=== PATIENT | male | born 1955 | race Two or more races ===

== ENCOUNTER → 2020-03-24 14:03 | Outpatient (BNVA) | payer OTHER, SELFPAY | PROVIDERS: PCP Nurse Practitioner Family; Referring Provider Nurse Practitioner Family; Visit Provider Surgery | DX: Z09 Encounter for follow-up examination after completed treatment for conditions other than malignant neoplasm (principal); D17.22 Benign lipomatous neoplasm of skin and subcutaneous tissue of left arm | CPT/HCPCS: 99024; 99212 ==

== ENCOUNTER 2021-04-05 08:34 | Emergency (ER) | payer OTHER, SELFPAY ==
--- NOTE | ~2021-04-05 | XR_ITS ---
EXAMINATION: XR CHEST CLINICAL INFORMATION: Cough and fever COMPARISON: 09/07/2014 TECHNIQUE: 2 views of the chest were obtained. FINDINGS: The lungs are well expanded. A hazy, streaky opacity in the anterior segment right upper lobe adjacent to the minor fissure could represent pneumonia and/or atelectasis. This abnormality is new compared to 09/07/2014. Also, there appears to be a small hazy opacity of the medial segment of the right middle lobe. No pleural effusion. Cardiomediastinal silhouette has normal size and contour. The visualized osseous structures and upper abdomen are unremarkable. XR/XR chest 2V IMPRESSION: There are abnormal hazy opacities in the anterior right upper lobe and medial segment middle lobe from atelectasis and/or pneumonia. No evidence of pulmonary mass. No pleural effusion.
[2021-04-05 08:46] VITALS: BP 133/63; PULSE 89; RESP 12; TEMP 36.9; O2SAT 95; BMI 25.0
[2021-04-05 09:31] LABS: COVID-19 Test Negative (Negative)
--- NOTE | 2021-04-05 09:31 | ED_ITS ---
HPI - General Adult General Chief complaint: Upper Respiratory Symptoms Stated complaint: COUGH SOB Time Seen by Provider: 04/05/21 09:31 Source: patient Mode of arrival: ambulatory Limitations: no limitations History of Present Illness HPI narrative: 66-year-old male smoker with a past medical history of asthma pre sents for 4 days of a productive cough and fevers at home. Patient states he does not have asthma and does not use an inhaler. No runny nose, sore throat, ear pain, nausea, vomiting, diarrhea. No chest pain, no shortness of breath. No sick contacts. He is vaccinated for COVID. Onset (ago): day(s) (4) Related Data Home Medications Medication Instructions Recorded Confirmed albuterol sulfate 90 mcg/actuation 0 mcg INHALATION 03/24/20 aerosol inhaler ibuprofen 600 mg tablet 600 mg PO Q6H PRN 03/24/20 lisinopril 20 mg tablet 20 mg PO DAILY 03/24/20 tramadol 50 mg tablet 100 mg PO Q6H PRN 03/24/20 Previous Rx's Medication Instructions Recorded albuterol sulfate 90 mcg/actuation 2 puff INHALATION Q4-6H #8.5 g 04/05/21 aerosol inhaler amoxicillin 875 mg-potassium 1 tab PO BID 10 Days #20 tab 04/05/21 clavulanate 125 mg tablet (Augmentin) azithromycin 250 mg tablet See Rx Instructions .ROUTE 04/05/21 .COMPLEX #6 tab prednisone 20 mg tablet 40 mg PO DAILY 3 Days #6 tab 04/05/21 Allergies Allergy/AdvReac Type Severity Reaction Status Date / Time No Known Allergies Allergy Verified 03/24/20 13:15 Review of Systems Constitutional: Constitutional: Denies body ache(s), Denies chills, Denies fatigue, Reports fever(s), Denies headache(s), Denies malaise and Denies weakness Eyes: Eyes: Denies diplopia ENT: Denies vertigo, Denies dizziness, Denies otalgia, Denies headache(s), Denies mouth pain, Denies post nasal drip, Denies sinus pain, Denies sinus pressure, Denies sore throat and Denies throat swelling Cardiovascular: Cardiovascular: Denies chest pain, Denies syncope, Denies leg edema, Denies lightheadedness, Denies Loss of Consciousness, Denies palpitations and Denies dyspnea Respiratory: Respiratory: Reports chest congestion, Reports cough, Denies pain on inspiration, Denies pain with cough and Denies dyspnea Gastrointestinal: Gastrointestinal: Denies abdominal pain, Denies hematochezia, Denies constipation, Denies diarrhea and Denies vomiting Musculoskeletal: Musculoskeletal: Reports no additional musculoskeletal complaints Neurologic: Denies confusion, Denies vertigo, Denies dizziness, Denies syncope, Denies headache(s) and Denies weakness Psychiatric: Psychiatric: Denies anxiety, Denies confusion and Denies depression Endocrine: Endocrine: Denies fatigue and Denies palpitations Allergic/Immunologic: Allergic/Immunologic: Denies throat swelling [facility] Past Medical History Medical History Anxiety Asthma Drug abuse Hep C w/o coma, chronic Hypertension Lipoma of arm Surgical History History of appendectomy History of excision of mass History of hernia surgery History of lung surgery Family History Family History Father History of hypertension Other Family history of breast cancer Social History Social History (Updated 03/24/20 @ 14:22 by TRESA Cueva) Alcohol intake: current Advance Directives: No Advance Directives Information Provided: No Physical Exam Vital Signs: Vital Signs: Last Vital Signs Temp 98.4 F 04/05/21 08:46 Pulse 89 04/05/21 08:46 Resp 12 04/05/21 08:46 BP 133/63 04/05/21 08:46 Pulse Ox 95 04/05/21 08:46 Body Mass Index 25.0 Const: General: alert, awake and ill appearing acutely; No confusion Nutritional Appearance: thin Orientation/consciousness: patient oriented x3 and No confusion Limitations: no limitations HENMT: Head: Yes normal to inspection, Yes normocephalic and Yes atraumatic Ears: hearing grossly normal bilaterally, external ears normal, TM's normal bilaterally and EAC's normal General nose exam: Normal external nose present Face and sinus: Yes normal facial exam and Yes sinuses nontender Mouth: Normal oral and palatal mucosa present Throat: Yes posterior oropharynx normal Eyes: Conjunctivae: conjunctivae normal Pupils: Equal, round and reactive pupils present EOM: EOMs intact bilaterally Neck: Neck: Yes full ROM, Yes no lymphadenopathy and Yes supple Resp: Effort & Inspection: normal respiratory effort and able to speak in complete sentences Auscultation: crackles diffuse, no rales, rhonchi throughout and wheezes expiratory wheezes Cardio: Rate: regular rate Rhythm: regular rhythm Heart sounds: S1 normal heart sound present and S2 normal heart sound present GI: Inspection: Yes normal to inspection Palpation (GI): Soft to palpation, nontender, no guarding and not rigid Percussion: Yes normal to percussion Auscultation: normal bowel sounds Skin: General skin exam: no rashes or lesions noted Neuro: General: patient oriented x3 and No confusion Cranial nerves: Yes Equal, round and reactive pupils present Extrem: General: Yes normal to inspection and Yes full ROM Psych: Appearance: grossly normal Affect: normal affect Attitude: cooperative Thought process: Normal thought process present Course Course Course Narrative: 66-year-old male with 4 days of productive cough and fevers at home. On exam, patient is not tachypneic, is satting 95% on room air. No work of breathing. Patient is diffusely wheezy and rhonchorous with crackles throughout his lung h[place]. CXR: There are abnormal hazy opacities in the anterior right upper lobe and medial segment middle lobe from atelectasis and/or pneumonia. No evidence of pulmonary mass. No pleural effusion. Reevaluation(s) Reevaluation #1: Leukocytosis at 11.9. Labs otherwise unremarkable. Patient is COVID negative. On re-exm, pt is still wheezy, rhonchorous, with diffuse rales. Patient has no work of breathing, has stable vitals, and is satting 95%. Will send patient home with Augmentin and azithromycin, short course of prednisone, patient must be seen again in 2 days. Told patient to use albuterol inhaler, 2 puffs every 4 hours. Medical Decision Making Lab Data Result diagrams: 04/05/21 10:13 04/05/21 10:13 Labs: Lab Results 04/05/21 04/05/21 04/05/21 Range/Units 08:55 10:13 10:13 WBC 11.9 H (4.8-10.8) X10*3/uL RBC 3.98 L (4.60-5.80) X10*6/uL Hgb 13.0 L (14.0-18.0) g/dl Hct 38.2 L (42-52) % MCV 96.0 (80-98) fL MCH 32.7 (27.0-33.0) pg MCHC 34.0 (31.0-36.0) g/dl RDW 12.2 (11.0-16.0) % Plt Count 260 (160-400) X10*3/uL MPV 10.8 (9.4-12.4) fL Immature Gran % (Auto) 0.3 (0.0-0.4) % Neut % (Auto) 63.4 (45-73) % Lymph % (Auto) 23.0 (20-40) % [place] % (Auto) 10.1 (2-11) % Eos % (Auto) 2.8 (0-4) % Baso % (Auto) 0.4 (0-2) % Lymph # (Auto) 2.7 (1.2-4.9) X10*3/uL [place] # (Auto) 1.2 (0.1-1.2) X10*3/uL Eos # (Auto) 0.3 (0.0-0.4) X10*3/uL Baso # (Auto) 0.1 (0.0-0.2) X10*3/uL Abs Immat Gran (auto) 0.04 H (0.00-0.03) X10*3/uL Absolute Neuts (auto) 7.5 (2.0-8.3) X10*3/uL Absolute Nucleated RBC 0.000 (0.0-0.012) X10*3/uL Nucleated RBC % (auto) 0.0 (0.0-0.2) /100WBC Sodium 139 (135-145) mmol/L Potassium 4.5 (3.3-5.1) mmol/L Chloride 103 (96-108) mmol/L Carbon Dioxide 28 (22-29) mmol/L Anion Gap 13 (12-20) BUN 15 (9-16) mg/dL Creatinine 0.95 (0.5-1.4) mg/dL Estim Creat Clear Calc 69.5 Estimated GFR > 60 Random Glucose 107 (60-115) mg/dL Calcium 9.3 (8.4-10.2) mg/dL Total Bilirubin 0.4 (0.0-1.0) mg/dL AST 15 (5-37) U/L ALT 8 (0-40) U/L Alkaline Phosphatase 69 (39-117) U/L Total Protein 6.8 (6.5-8.0) g/dL Albumin 3.7 (3.5-5.0) g/dL COVID-19 (KATELIN) Negative (Negative) COVID-19 Clin Com See Note Discharge Plan Discharge Clinical Impression: Pneumonia Qualifiers: Pneumonia type: due to unspecified organism Laterality: right Lung location: unspecified part of lung Qualified Code(s): J18.9 - Pneumonia, unspecified organism Patient Disposition: Home, Self-Care Instructions: Bacterial Pneumonia (ED) Additional Instructions: I have prescribed an albuterol inhaler, prednisone, and 2 antibiotics to treat your pneumonia. Please take all as prescribed. Please use your albuterol inhaler, 2 puffs every 4 hours for the next 3 or 4 days. Please go home and rest and drink plenty of fluids. You must be seen again in 2 days. Please go to your primary care provider so they can listen to your lungs and make sure that you are improving. If you cannot get an appointment with your primary care provider, you may return to the emergency room. It is important that someone listen steer lungs and re-evaluate see you in the next 2-3 days. Prescriptions: New prednisone 20 mg tablet 40 mg PO DAILY 3 Days Qty: 6 RF: 0 albuterol sulfate 90 mcg/actuation HFA aerosol inhaler 2 puff inhalation Q4-6H Qty: 8.5 RF: 0 amoxicillin-pot clavulanate [Augmentin] 875-125 mg tablet 1 tab PO BID 10 Days Qty: 20 RF: 0 azithromycin 250 mg tablet See Rx Instructions .ROUTE .COMPLEX Qty: 6 RF: 0
[2021-04-05 10:17] LABS: MANUAL DIFF FLAG NO
[2021-04-05 10:20] LABS: Basophils Absolute Auto 0.1 X10*3/uL (0.0-0.2); Basophils Percent Auto 0.4 % (0-2); Eosinophils Absolute Auto 0.3 X10*3/uL (0.0-0.4); Eosinophils Percent Auto 2.8 % (0-4); Hematocrit 38.2 % (42-52); Imm Gran Abs Auto 0.04 X10*3/uL (0.00-0.03); Imm Gran Pct Auto 0.3 % (0.0-0.4); Lymphocytes Absolute Auto 2.7 X10*3/uL (1.2-4.9); Mean Corpuscular Hemoglobin 32.7 pg (27.0-33.0); Mean Platelet Volume 10.8 fL (9.4-12.4); Monocytes Absolute Auto 1.2 X10*3/uL (0.1-1.2); Monocytes Percent Auto 10.1 % (2-11); Neutrophils Absolute Auto 7.5 X10*3/uL (2.0-8.3); Neutrophils Percent Auto 63.4 % (45-73); Platelet Count 260 X10*3/uL (160-400); Red Blood Count 3.98 X10*6/uL (4.60-5.80); Red Cell Distribution Width 12.2 % (11.0-16.0); White Blood Count 11.9 X10*3/uL (4.8-10.8)
[2021-04-05] MEDS: Albuterol Sulfate 90 MCG 8 GM INHALER 2 PUFF INHALE (10:24)
[2021-04-05 11:02] LABS: Alanine Aminotransferase 8 U/L (0-40); Albumin Level 3.7 g/dL (3.5-5.0); Alkaline Phosphatase 69 U/L (39-117); Anion Gap 13 (12-20); Aspartate Amino Transferase 15 U/L (5-37); Bilirubin Total 0.4 mg/dL (0.0-1.0); Blood Urea Nitrogen 15 mg/dL (9-16); Calcium 9.3 mg/dL (8.4-10.2); Carbon Dioxide 28 mmol/L (22-29); Chloride 103 mmol/L (96-108); Creatinine Clr Calc Pharmacy 69.5; Estimated Glomerular Filt Rate > 60; Glucose Random 107 mg/dL (60-115); Potassium 4.5 mmol/L (3.3-5.1); Sodium 139 mmol/L (135-145); Total Protein 6.8 g/dL (6.5-8.0)
[2021-04-05] MEDS: predniSONE 20 MG TABLET 60 MG PO (11:51)
== END 2021-04-05 11:55 | disposition home or self-care (01) ==
PROVIDERS: Physician Assistant; Emergency Provider Emergency Medicine Emergency Medical Services; PCP Nurse Practitioner Family
DX: J18.9 Pneumonia, unspecified organism (principal); J45.909 Unspecified asthma, uncomplicated; I10 Essential (primary) hypertension; Z20.822 Contact with and (suspected) exposure to COVID-19
CPT/HCPCS: 36415; 71046; 80053; 85025; 87635; 99282; 99283; 99284

== ENCOUNTER 2022-03-10 15:27 | Emergency (ER) | payer OTHER, SELFPAY ==
--- NOTE | ~2022-03-10 | CT_ITS ---
EXAMINATION: CT ABDOMEN AND PELVIS WITH CONTRAST CLINICAL INFORMATION: Elevated lipase. ETOH. Nausea/vomiting COMPARISON: 06/14/2011 MRI TECHNIQUE: Multidetector volumetric imaging was performed from the superior aspect of the liver through the pubic symphysis following administration of 100 mL Omnipaque 300 intravenous contrast. Sagittal and coronal reformatted images were obtained on the technologist workstation.. This CT examination was performed using dose optimization techniques as appropriate, variously including the following: *Automated exposure control *Adjustment of mA and/or kV according to patient size (this includes techniques or standardized protocols for targeted exams where dose is matched to indication/reason for exam; i.e. extremities or head) *Use of iterative reconstruction technique DLP: 586 mGy-cm FINDINGS: LUNG BASES: The visualized lung bases are unremarkable. LIVER, GALLBLADDER, AND BILIARY TREE: The liver is normal in size, shape, and attenuation. No focal hepatic lesion or biliary ductal dilatation is present. The gallbladder is unremarkable with no evidence of radiopaque gallstones, gallbladder wall thickening, or obvious pericholecystic inflammatory changes. PANCREAS: Homogeneous attenuation. I do not appreciate any pancreatic ductal dilatation. No significant peripancreatic inflammatory changes or fluid. SPLEEN: Unremarkable. ADRENAL GLANDS: Unremarkable. KIDNEYS AND URETERS: Tiny cortical cysts in the right kidney. Otherwise the kidneys are normal in size, shape, and attenuation. No hydronephrosis, hydroureter, or calculi seen. No perinephric stranding. BLADDER: Unremarkable. GASTROINTESTINAL TRACT: A few scattered colonic diverticula but no evidence for diverticulitis. ABDOMINAL WALL: No significant hernia is appreciated. LYMPHOVASCULAR STRUCTURES: Mild vascular calcification within the aorta iliac system. No bulky retroperitoneal or mesenteric adenopathy PELVIC VISCERA: Prostate is prominent with prostatic calcifications. OSSEOUS STRUCTURES: Multilevel degenerative changes in the spine. CT/CT abdomen pelvis w IV con IMPRESSION: Chronic appearing changes as described. I do not appreciate any acute complications of pancreatitis. No obvious pancreatic ductal dilatation or peripancreatic inflammatory changes/fluid at this time.
[2022-03-10 15:31] VITALS: BP 206/106; PULSE 84; PULSE 89; RESP 20; TEMP 36.7; O2SAT 100; BMI 23.3
--- NOTE | 2022-03-10 15:32 | ED_ITS ---
HPI - Alcohol General Chief Complaint: Overdose Stated Complaint: ETOH VOMITING Time Seen by Provider: 03/10/22 15:31 Source: patient and EMS Mode of arrival: EMS History of Present Illness HPI narrative: 67-year-old male with a past medical history of anxiety, asthma, substance abuse, hepatitis-C, HTN, presenting to the ED via EMS s/p knocking on [facility]'s door saying he was overdosing. Patient admits to using heroin and drinking 2 beers. No Narcan given per EMS. Patient reports nausea, vomiting, chills at present. Denies fall/injury, head trauma, headache, CP/SOB, abdominal pain, other illicit substances MD complaint: alcohol intoxication and alcohol dependence Last drink: Just prior to admission Related Data Home Medications Medication Instructions Recorded Confirmed albuterol sulfate 90 mcg/actuation 0 mcg inhalation 03/24/20 aerosol inhaler ibuprofen 600 mg tablet 600 mg PO Q6H PRN pain 03/24/20 lisinopril 20 mg tablet 20 mg PO DAILY 03/24/20 tramadol 50 mg tablet 100 mg PO Q6H PRN pain 03/24/20 Previous Rx's Medication Instructions Recorded albuterol sulfate 90 mcg/actuation 2 puff inhalation Q4-6H #8.5 grams 04/05/21 aerosol inhaler amoxicillin 875 mg-potassium 1 tab PO BID 10 days #20 tabs 04/05/21 clavulanate 125 mg tablet (Augmentin) azithromycin 250 mg tablet See Rx Instructions PO .COMPLEX #6 04/05/21 tabs prednisone 20 mg tablet 40 mg PO DAILY 3 days #6 tabs 04/05/21 Allergies Allergy/AdvReac Type Severity Reaction Status Date / Time No Known Allergies Allergy Verified 03/10/22 15:30 Review of Systems Review of Systems: Constitutional: No Fever, No Chills, No Fatigue, No Malaise ENT/Mouth: No Ear Pain, No Nasal Congestion,No sore throat, No Rhinorrhea, No Swallowing Difficulty Eyes: No Eye Pain, No Swelling, No Redness, No Vision Changes Cardiovascular: No Chest Pain, No SOB, No Edema, No Palpitations Respiratory: No Cough, No Sputum, No Dyspnea Gastrointestinal: + Nausea, + Vomiting, No Abdominal pain Genitourinary: No Dysuria, No Urinary Frequency, No Hematuria,No Flank Pain Musculoskeletal: No joint pain, No Myalgias, No Joint Swelling Skin: No Skin Lesions, No rash Neuro: No Weakness, No Headache Psych: No Anxiety/Panic, No Depression, No SI/HI/AH/VH Yes all other systems are reviewed and are negative Constitutional: Constitutional: Reports as per [facility] Past Medical History Attestation statement: The following information was validated with the patient. Medical History Anxiety Asthma Drug abuse Hep C w/o coma, chronic Hypertension Lipoma of arm Surgical History History of appendectomy History of excision of mass History of hernia surgery History of lung surgery Family History Family History Father History of hypertension Other Family history of breast cancer Social History Social History Alcohol intake: unknown Patient Tobacco Use Status: Refuse Tobacco use screen Use of substances other than those prescribed or required for medical reasons: Yes Substance Use Type: Heroin Advance Directives: No Advance Directives Information Provided: Yes Physical Exam ED Vital Signs: Vital Signs - 24 hr 03/10/22 15:31 03/10/22 18:00 Temperature 98.0 F 98.2 F Pulse Rate 84 77 Respiratory Rate 20 18 Blood Pressure 206/106 H 162/80 H Pulse Oximetry 100 95 Oxygen Delivery Method Room Air Room Air BMI result Body Mass Index 23.3 Const Other: Dishevelled, actively vomiting during evaluation General: no acute distress and intoxicated appearing Orientation/consciousness: patient oriented x3 Limitations: no limitations HENMT Head: Yes normal to inspection, Yes atraumatic, No Calderon's sign and No raccoon eyes Ears: hearing grossly normal bilaterally General nose exam: Normal external nose present Face and sinus: Yes normal facial exam Eyes General: appearance normal, both eyes and all related structures Pupils: Equal, round and reactive pupils present EOM: EOMs intact bilaterally Neck Neck: Yes normal visual inspection and Yes no meningeal signs Resp Effort & Inspection: normal respiratory effort and no respiratory distress Auscultation: clear to auscultation bilaterally Cardio Rate: regular rate Heart sounds: S1 normal heart sound present and S2 normal heart sound present GI Inspection: Yes normal to inspection Palpation (GI): Soft to palpation, nontender, no guarding and not rigid Skin Rashes: no rashes Wounds: no wounds Neuro General: patient oriented x3, tone normal, moves all extremities, no meningeal s igns, no focal motor deficits and CN's II-XI intact bilaterally Cranial nerves: Yes Equal, round and reactive pupils present Extrem General: Yes normal to inspection Course Course Course Narrative: -1639--mild leukocytosis of 11.4. H&H stable. Lipase elevated to 842 > give additional IVF and obtain CT for further evaluation -ethanol 60 -1707--patient vomiting continuing to vomit. Concern for SBO. Patient states he has not had a BM in quite some time. No evidence of ETOH withdrawal this time, no appreciable tremors. 1922--CT abdomen pelvis w IV con IMPRESSION: Chronic appearing changes as described. I do not appreciate any acute complications of pancreatitis. No obvious pancreatic ductal dilatation or peripancreatic inflammatory changes/fluid at this time. > plan to admit for further management. Will initiate on phenobarb protocol -1999---patient now refusing admission. Will sign out AMA. Hospitalist attempted to convince patient to stay as well. Patient does have capacity, is A&O x3, understands the risk of leaving including . Always welcome to return MDM - Alcohol MDM Narrative Medical decision making narrative: 67-year-old male with a past medical history of anxiety, asthma, substance abuse, hepatitis-C, HTN, presenting to the ED via EMS s/p knocking on [facility] door saying he was overdosing. On exam hypertensive, actively vomiting, abdomen soft/nontender, atraumatic, COPPOLA. Concern for ETOH intoxication vs substance abuse vs withdrawal. Rule out metabolic abnormalities Plan: EKG, labs, UA, drug screen, ethanol, IVF, antiemetics Differential Diagnosis Differential diagnosis: Likely alcohol dependence, hypomagnesemia and alcohol intoxication Medical Records Attestation: I reviewed the patient's medical records. Lab Data Attestation: I reviewed the patient's lab results. Result diagrams: 03/10/22 16:05 03/10/22 16:05 Labs: Lab Results 03/10/22 03/10/22 03/10/22 Range/Units 16:05 16:05 17:35 WBC 11.4 H (4.8-10.8) X10*3/uL RBC 4.19 L (4.60-5.80) X10*6/uL Hgb 13.5 L (14.0-18.0) g/dl Hct 40.3 L (42.0-52.0) % MCV 96.2 (80.0-98.0) fL MCH 32.2 (27.0-33.0) pg MCHC 33.5 (31.0-36.0) g/dl RDW 13.4 (11.0-16.0) % Plt Count 225 (160-400) X10*3/uL MPV 11.2 (9.4-12.4) fL Immature Gran % (Auto) 0.3 (0.0-0.4) % Neut % (Auto) 52.4 (45-73) % Lymph % (Auto) 36.5 (20-40) % [place] % (Auto) 7.7 (2-11) % Eos % (Auto) 2.4 (0-4) % Baso % (Auto) 0.7 (0-2) % Lymph # (Auto) 4.2 (1.2-4.9) X10*3/uL [place] # (Auto) 0.9 (0.1-1.2) X10*3/uL Eos # (Auto) 0.3 (0.0-0.4) X10*3/uL Baso # (Auto) 0.1 (0.0-0.2) X10*3/uL Abs Immat Gran (auto) 0.03 (0.00-0.03) X10*3/uL Absolute Neuts (auto) 6.0 (2.0-8.3) x10*3/uL Absolute Nucleated RBC 0.000 (0.0-0.012) X10*3/uL Nucleated RBC % (auto) 0.0 (0.0-0.2) /100WBC Sodium 138 (135-145) mmol/L Potassium 3.6 (3.3-5.1) mmol/L Chloride 102 (96-108) mmol/L Carbon Dioxide 24 (22-29) mmol/L Anion Gap 16 (12-20) BUN 13 (9-16) mg/dL Creatinine 1.09 (0.5-1.4) mg/dL Estim Creat Clear Calc 59.7 Estimated GFR > 60 Random Glucose 83 (60-115) mg/dL Calcium 9.3 (8.4-10.2) mg/dL Magnesium 1.8 (1.6-2.6) mg/dL Total Bilirubin 0.2 (0.0-1.0) mg/dL Direct Bilirubin < 0.2 (0.0-0.5) mg/dL AST 19 (5-37) U/L ALT 13 (0-40) U/L Alkaline Phosphatase 65 (39-117) U/L Total Protein 6.9 (6.5-8.0) g/dL Albumin 4.1 (3.5-5.0) g/dL Lipase 842 H (8-78) U/L Ethyl Alcohol 60 mg/dL COVID-19 (KATELIN) Negative (Negative) COVID-19 Clin Com See Note Discharge Plan Discharge Clinical Impression: Acute pancreatitis, Alcohol intoxication, Substance abuse Patient Disposition: Left Against Medical Advice Instructions: Pancreatitis (ED) Additional Instructions: Avoid alcohol and drug use, this can kill you. You do have acute pancreatitis which is an infection of her pancreas likely from drinking Make sure you are staying hydrated at home. Were signing out against medical advice, meaning be recommended he stay in the hospital for fluids and observation. You are always welcome to return, if pain persists/worsens, you are unable to eat or drink, persistent nausea or vomiting please return to the emergency department immediately Prescriptions: No [facility] prednisone 20 mg tablet 40 mg PO DAILY 3 Days Qty: 6 0RF Rx Instructions: Start April 06, 2021 albuterol sulfate 90 mcg/actuation HFA aerosol inhaler 2 puff inhalation Q4-6H Qty: 8.5 0RF amoxicillin-pot clavulanate [Augmentin] 875-125 mg tablet 1 tab PO BID 10 Days Qty: 20 0RF azithromycin 250 mg tablet See Rx Instructions .ROUTE .COMPLEX Qty: 6 0RF Rx Instructions: take 500 mg today (day 1), then 250 mg for 4 days (days 2-5) Referrals: Physician,Unknown J [Primary Care Provider] - 2 days Stand Alone Forms: Against Medical Advice
[2022-03-10 16:08] LABS: MANUAL DIFF FLAG NO
[2022-03-10 16:09] LABS: Basophils Absolute Auto 0.1 X10*3/uL (0.0-0.2); Basophils Percent Auto 0.7 % (0-2); Eosinophils Absolute Auto 0.3 X10*3/uL (0.0-0.4); Eosinophils Percent Auto 2.4 % (0-4); Hematocrit 40.3 % (42.0-52.0); Hemoglobin 13.5 g/dl (14.0-18.0); Imm Gran Abs Auto 0.03 X10*3/uL (0.00-0.03); Imm Gran Pct Auto 0.3 % (0.0-0.4); Lymphocytes Absolute Auto 4.2 X10*3/uL (1.2-4.9); Lymphocytes Percent Auto 36.5 % (20-40); Mean Corpuscular HGB Conc 33.5 g/dl (31.0-36.0); Mean Corpuscular Hemoglobin 32.2 pg (27.0-33.0); Mean Corpuscular Volume 96.2 fL (80.0-98.0); Mean Platelet Volume 11.2 fL (9.4-12.4); Monocytes Absolute Auto 0.9 X10*3/uL (0.1-1.2); Monocytes Percent Auto 7.7 % (2-11); Neutrophils Percent Auto 52.4 % (45-73); Platelet Count 225 X10*3/uL (160-400); Red Blood Count 4.19 X10*6/uL (4.60-5.80); Red Cell Distribution Width 13.4 % (11.0-16.0); White Blood Count 11.4 X10*3/uL (4.8-10.8)
[2022-03-10 16:30] LABS: Alanine Aminotransferase 13 U/L (0-40); Albumin Level 4.1 g/dL (3.5-5.0); Alkaline Phosphatase 65 U/L (39-117); Anion Gap 16 (12-20); Aspartate Amino Transferase 19 U/L (5-37); Bilirubin Direct < 0.2 mg/dL (0.0-0.5); Bilirubin Total 0.2 mg/dL (0.0-1.0); Blood Urea Nitrogen 13 mg/dL (9-16); Calcium 9.3 mg/dL (8.4-10.2); Carbon Dioxide 24 mmol/L (22-29); Chloride 102 mmol/L (96-108); Creatinine Clr Calc Pharmacy 59.7; Estimated Glomerular Filt Rate > 60; Ethanol 60 mg/dL; Glucose Random 83 mg/dL (60-115); Lipase 842 U/L (8-78); Magnesium 1.8 mg/dL (1.6-2.6); Potassium 3.6 mmol/L (3.3-5.1); Sodium 138 mmol/L (135-145); Total Protein 6.9 g/dL (6.5-8.0)
[2022-03-10] MEDS: ondansetron HCL 4 MG/2 ML VIAL IVPUSH (16:32)
[2022-03-10] MEDS: Famotidine/PF 20 MG/2 ML VIAL IVPUSH (16:32)
[2022-03-10] MEDS: 0.9 % Sodium Chloride 1,000 ML 999 ML IV ×2 (16:33→18:09)
--- NOTE | 2022-03-10 16:35 | PC.NURSE ---
patient a&ox2, iv inserted, labs drawn, pt medicated per order, pt admitted to snorting unknown amount of heroin, pt has vomited in presence of this nurse, will continue to monitor
[2022-03-10 17:58] LABS: COVID-19 Test Negative (Negative); IDNOW Serial# 55D5AD1C
[2022-03-10 18:00] VITALS: BP 162/80; PULSE 77; RESP 18; TEMP 36.8; O2SAT 95
[2022-03-10] MEDS: Folic Acid 1 MG in 0.9 % Sodium Chloride 50 ML 100.4 MG IV (18:13)
[2022-03-10] MEDS: Multivitamin TABLET 1 TAB PO (18:13)
--- NOTE | 2022-03-10 18:16 | PC.NURSE ---
patient a&o, vss, pt medicated per order, pt moved to rm 22. call daniels within reach, pt aware we need urine, will continue to monitor
[2022-03-10] MEDS: iohexoL 350 MG/ML 100 ML INFUS..BTL IV (18:29)
[2022-03-10] MEDS: Thiamine HCL 100 MG in 0.9 % Sodium Chloride 100 ML 202 MG IV (18:58)
--- NOTE | 2022-03-10 18:59 | PC.NURSE ---
pt medicated per order
--- NOTE | 2022-03-10 20:16 | PC.NURSE ---
pt refusing admission and wishing to leave [facility]a, provider is aware, iv removed, pt to discharge
== END 2022-03-10 20:17 | disposition left against medical advice (07) ==
PROVIDERS: Physician Assistant; Emergency Provider Internal Medicine
DX: K85.90 Acute pancreatitis without necrosis or infection, unspecified (principal); F10.220 Alcohol dependence with intoxication, uncomplicated; Y90.3 Blood alcohol level of 60-79 mg/100 ml; F19.10 Other psychoactive substance abuse, uncomplicated; B19.20 Unspecified viral hepatitis C without hepatic coma; I10 Essential (primary) hypertension; Z20.822 Contact with and (suspected) exposure to COVID-19
CPT/HCPCS: 36415; 74177; 80048; 80076; 82077; 83690; 83735; 85025; 87635; 96361; 96365; 96375; 99284; 99285; J2405; J3411; Q9967

== ENCOUNTER → 2022-05-09 11:12 | Outpatient (BNVA) | payer OTHER, SELFPAY | PROVIDERS: Visit Provider Surgery | DX: L98.9 Disorder of the skin and subcutaneous tissue, unspecified (principal); M25.512 Pain in left shoulder | CPT/HCPCS: 99212 ==

== ENCOUNTER → 2022-11-28 10:33 | Outpatient (BNVA) | payer OTHER, SELFPAY | PROVIDERS: Visit Provider Surgery | DX: M89.8X9 Other specified disorders of bone, unspecified site (principal); G47.00 Insomnia, unspecified | CPT/HCPCS: 99212 ==

== ENCOUNTER 2023-04-16 08:51 | Outpatient (REF) | payer OTHER, SELFPAY ==
[2023-04-16 11:10] LABS: MANUAL DIFF FLAG NO
[2023-04-16 11:23] LABS: Basophils Absolute Auto 0.1 X10*3/uL (0.0-0.2); Basophils Percent Auto 0.7 % (0-2); Eosinophils Absolute Auto 0.3 X10*3/uL (0.0-0.4); Eosinophils Percent Auto 2.6 % (0-4); Hematocrit 45.8 % (42.0-52.0); Hemoglobin 15.5 g/dl (14.0-18.0); Imm Gran Abs Auto 0.02 X10*3/uL (0.00-0.03); Imm Gran Pct Auto 0.2 % (0.0-0.4); Lymphocytes Absolute Auto 2.9 X10*3/uL (1.2-4.9); Lymphocytes Percent Auto 28.2 % (20-40); Mean Corpuscular HGB Conc 33.8 g/dl (31.0-36.0); Mean Corpuscular Hemoglobin 34.1 pg (27.0-33.0); Mean Corpuscular Volume 100.7 fL (80.0-98.0); Mean Platelet Volume 11.5 fL (9.4-12.4); Monocytes Absolute Auto 0.9 X10*3/uL (0.1-1.2); Monocytes Percent Auto 9.1 % (2-11); Neutrophils Percent Auto 59.2 % (45-73); Platelet Count 294 X10*3/uL (160-400); Red Blood Count 4.55 X10*6/uL (4.60-5.80); Red Cell Distribution Width 14.2 % (11.0-16.0); White Blood Count 10.2 X10*3/uL (4.8-10.8)
[2023-04-16 11:50] LABS: Alanine Aminotransferase 25 U/L (0-40); Albumin Level 4.2 g/dL (3.5-5.0); Alkaline Phosphatase 70 U/L (39-117); Anion Gap 13 (12-20); Aspartate Amino Transferase 30 U/L (5-37); Bilirubin Total 0.6 mg/dL (0.0-1.0); Blood Urea Nitrogen 14 mg/dL (9-16); Calcium 9.9 mg/dL (8.4-10.2); Carbon Dioxide 25 mmol/L (22-29); Chloride 107 mmol/L (96-108); Cholesterol 185 mg/dL (<200); Estimated Glomerular Filt Rate > 60; Glucose Random 106 mg/dL (60-115); HDL Cholesterol 94 mg/dL (>40); LDL Cholesterol Calculated 83 mg/dL (<100); Sodium 141 mmol/L (135-145); Total Protein 7.5 g/dL (6.5-8.0); Triglycerides 43 mg/dL (<150)
== END 2023-04-16 08:52 | disposition home or self-care (01) ==
LOC: HO.HHCL 08:51
PROVIDERS: Visit Provider Nurse Practitioner Family
DX: Z00.00 Encounter for general adult medical examination without abnormal findings (principal); I10 Essential (primary) hypertension
CPT/HCPCS: 36415; 80053; 80061; 84443; 85025

== ENCOUNTER 2024-02-08 18:07 | Emergency (ER) | payer OTHER, SELFPAY ==
--- NOTE | ~2024-02-08 | CT_ITS ---
EXAMINATION: CT HEAD WITHOUT CONTRAST CT CERVICAL SPINE WITHOUT CONTRAST CLINICAL INFORMATION: Fall. Pain. COMPARISON: CT head from 01/19/2011. TECHNIQUE: Contiguous axial imaging was performed from the skull base to vertex without intravenous administration of contrast. Contiguous axial imaging was performed from the upper chest through the skull base without intravenous administration of contrast. Coronal and sagittal reformats were obtained at the acquisition workstation. This CT examination was performed using dose optimization techniques as appropriate, variously including the following: *Automated exposure control. *Adjustment of mA and/or kV according to patient size (this includes techniques or standardized protocols for targeted exams where dose is matched to indication/reason for exam; i.e. extremities or head). *Use of iterative reconstruction technique. DLP: 998 mGy-cm FINDINGS: Head: There is no evidence of acute intracranial hemorrhage or edematous territorial infarction. Chris-white matter differentiation is preserved. A few foci of hypoattenuation in the periventricular and deep white matter are consistent with mild microangiopathy. Proportional prominence of the ventricles and sulcal spaces without evidence of obstructive hydrocephalus. No abnormal mass effect or midline shift. No extra-axial fluid collections. Calcific atherosclerotic disease of the intracranial internal carotid arteries. No hyperdense vessels on end. No acute soft tissue or osseous abnormalities. Complete opacification of the left maxillary sinus with mild hyperostotic wick. Mild to moderate mucosal thickening in the remaining paranasal sinuses. The mastoid air cells and middle ear cavity are clear. Cervical Spine: The atlantooccipital and atlantoaxial articulations remain well aligned. Moderate degenerative arthropathy of the atlantodental articulation. Mild reversal of the normal cervical lordosis. Mild degenerative retrolisthesis of C6 on C7. Otherwise, there is anatomic alignment of the vertebral bodies and posterior elements. No evidence of acute fracture or subluxation. The vertebral body heights are maintained. Advanced degenerative disc disease from C5-C7. Moderate degenerative disc disease at all additional levels. Facet and uncovertebral joint arthropathy leads to osseous encroachment on the neural foramina from C2-T1. There is no prevertebral soft tissue swelling. The thyroid gland and remaining cervical soft tissues are within normal limits. The lung apices demonstrate no abnormalities. CT/CT cervical spine wo IV con IMPRESSION: 1. No evidence of acute intracranial hemorrhage or edematous territorial infarction. Mild underlying microangiopathy and generalized cerebral volume loss. 2. No evidence of acute fracture or traumatic subluxation of the cervical spine. Moderate multilevel degenerative spondyloarthropathy of the cervical spine. 3. Prominent left maxillary sinus disease. Electronically signed by: Shawn Vazquez DO 02/08/2024 08:11 PM EDT
--- NOTE | ~2024-02-08 | XR_ITS ---
EXAMINATION: XR HIP, LEFT CLINICAL INFORMATION: Fall, COMPARISON: None available. TECHNIQUE: Two views of the left hip. FINDINGS: No fracture. Alignment is anatomic. Hip joint space is maintained. Soft tissues are unremarkable. XR/XR hip LT w PEL1V IMPRESSION: Normal left hip. Electronically signed by: Stevan Thomas DO 02/08/2024 09:21 PM EDT
[2024-02-08 18:11] VITALS: BP 127/74; PULSE 92; RESP 18; TEMP 36.7; O2SAT 97; BMI 25.1
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
[2024-02-08] MEDS: Acetaminophen 325 MG TABLET 975 MG PO (18:44)
[2024-02-08] MEDS: Ibuprofen 600 MG TABLET PO (20:25)
--- NOTE | 2024-02-08 20:26 | PC.NURSE ---
pt medicated for 910 lle pain
[2024-02-08 21:41] VITALS: BP 127/74; PULSE 92; RESP 18; TEMP 36.7; O2SAT 97
== END 2024-02-08 21:43 | disposition home or self-care (01) ==
PROVIDERS: Emergency Provider Emergency Medicine Emergency Medical Services
DX: S70.02XA Contusion of left hip, initial encounter (principal); V18.0XXA Pedal cycle driver injured in noncollision transport accident in nontraffic accident, initial encounter; Y93.55 Activity, bike riding; Y92.410 Unspecified street and highway as the place of occurrence of the external cause; Y99.9 Unspecified external cause status
CPT/HCPCS: 70450; 72125; 73502; 99283; 99284

== ENCOUNTER 2024-04-16 10:47 | Outpatient (AMB) | payer OTHER, SELFPAY ==
--- NOTE | 2024-04-16 10:52 | MHC.OFFVIS ---
Vital Signs 04/16/24 10:59 Height 5 ft 7 in Weight 156 lb BMI 24.4 BP 146/88 H Blood Pressure Location Rt brachial Position Sitting Pulse 108 H Intake Visit Reasons: Cyst on back of head Intake Note: This patient presents for Cyst on posterior scalp. Present for 1yr. Pt c/o; gets irritated with haircuts. 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 He says that he has noticed this for more than a year now. This has been increasing in size. He says been bothering him and he wants this removed. [facility] Medical History (Updated 04/16/24 @ 11:18 by Sal Bethea MD) Epidermal cyst of neck Insomnia Bony prominence Left shoulder pain Skin lesion of cheek Drug abuse Lipoma of arm Hep C w/o coma, chronic Anxiety Hypertension Asthma Surgical History History of appendectomy History of hernia surgery History of lung surgery History of excision of mass Family History Father History of hypertension Other Family history of breast cancer Social History Alcohol intake: unknown Patient Tobacco Use Status: Refuse Tobacco use screen Substance Use Type: Heroin Review of Systems Const Denies chills and Denies fever(s) Card Denies chest pain, Denies dyspnea and Denies dyspnea on exertion Resp Denies cough, Denies dyspnea and Denies dyspnea on exertion GI Denies hematochezia and Denies change in bowel habits Denies hematuria and Denies difficulty urinating Musc Denies back pain and Denies limited range of motion Neuro Denies focal weakness and Denies convulsions Psych Denies depression and Denies mood swings Physical Exam Vital Signs: Last Vital Signs Pulse 108 H 04/16/24 10:59 BP 146/88 H 04/16/24 10:59 BMI result Body Mass Index 24.4 Const General: comfortable and no acute distress Orientation/consciousness: patient oriented x3 Neck Other: Posterior neck with note of a cystic induration, about 2 cm in size consistent with an epidermal cyst Neck: Yes no lymphadenopathy Resp Auscultation: clear to auscultation bilaterally Cardio Rhythm: regular rhythm GI Palpation (GI): Soft to palpation, nontender and no guarding Neuro General: patient oriented x3 Assessment & Plan Assessment & Plan (1) Epidermal cyst of neck: Code(s): L72.0 - Epidermal cyst Category: Medical Plan: He has what appears to be an epidermal cyst of the posterior neck as described above. I explained to him the technique of excision under local anesthesia. I reviewed the risks including but not limited to bleeding, infections, poor healing, as well as the benefits and alternatives. He understands and wants to proceed He will be scheduled for excision of this epidermal cyst under local anesthesia in the office. Coding Level of Care Code New Pt Level 3 (42163) Diagnoses Epidermal cyst of neck L72.0
[2024-04-16 10:59] VITALS: BP 146/88; PULSE 108; BMI 24.4
== END 2024-04-16 11:19 | disposition home or self-care (01) ==
PROVIDERS: Visit Provider Surgery
DX: L72.0 Epidermal cyst (principal)
CPT/HCPCS: 99213

== ENCOUNTER → 2024-04-16 10:47 | Outpatient (BNVA) | payer OTHER, SELFPAY | PROVIDERS: Visit Provider Surgery | DX: L72.0 Epidermal cyst (principal) | CPT/HCPCS: 99212 ==

== ENCOUNTER 2024-04-30 08:50 | Outpatient (REF) | payer OTHER, SELFPAY | END 2024-04-30 08:51 | disposition home or self-care (01) | LOC: HO.LNP 08:50 | PROVIDERS: Visit Provider Surgery | DX: L72.0 Epidermal cyst (principal) | CPT/HCPCS: 11423; 88304 ==

== ENCOUNTER 2024-04-30 08:50 | Outpatient (AMB) | payer OTHER, SELFPAY ==
--- NOTE | 2024-04-30 09:10 | A.OFFVIS_ITS ---
Intake Visit Reasons: excision Cyst on back of head Intake Note: Office procedure: excision cyst posterior head. 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 [facility] Medical History Epidermal cyst of neck Insomnia Bony prominence Left shoulder pain Skin lesion of cheek Drug abuse Lipoma of arm Hep C w/o coma, chronic Anxiety Hypertension Asthma Surgical History History of appendectomy History of hernia surgery History of lung surgery History of excision of mass Family History Father History of hypertension Other Family history of breast cancer Social History Alcohol intake: unknown Patient Tobacco Use Status: Refuse Tobacco use screen Substance Use Type: Heroin Office Procedures Excision Details: He was in prone position. The area of the cyst was prepped and draped. This was on the scalp area in the occipital region near the neck. I infiltrated the area with lidocaine 1%. I made an elliptical incision on the skin surrounding this cystic induration. This is carried down through the full-thickness of the skin and deep subcutaneous fat to excise this entire cyst. This was sent as nicol renae. The cyst removed was about 2.1 cm in diameter I closed the incision with full-thickness nylon 3-0 simple interrupted sutures. Dressings were applied. The procedure was completed. He tolerated procedure well. There were no immediate complications. [id number] scalp/neck/hands/feet/genitalia 2.1cm-3cm Procedure code (CPT) selection complete Assessment & Plan Assessment & Plan (1) Epidermal cyst of neck: Code(s): L72.0 - Epidermal cyst Category: Medical Plan: Excision was done in the office under local anesthesia. He was given wound care instructions. I will see him in the office in about 2 weeks for removal sutures. Coding Level of Care Code Procedure Only Diagnoses Epidermal cyst of neck L72.0 CPT Codes Scalp/Neck/Hands/Feet/Genetalia - CPT: 13142-Bsgadphp scalp/neck/hands/feet/genitalia 2.1cm-3cm ([id number])
== END 2024-04-30 09:38 | disposition home or self-care (01) ==
PROVIDERS: Visit Provider Surgery
DX: L72.0 Epidermal cyst (principal)
CPT/HCPCS: 11423

== ENCOUNTER 2024-05-11 09:02 | Outpatient (AMB) | payer OTHER, SELFPAY ==
--- NOTE | 2024-05-11 09:06 | MHC.OFFVIS ---
Vital Signs 05/11/24 09:15 Height 5 ft 7 in Weight 156 lb BMI 24.4 Intake Visit Reasons: s/p excision Cyst on back of head Intake Note: This patient presents for post-op assessment status post excision cyst posterior neck. Pt c/o; reports no complaints. 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 He denies any complaints and says he feels well overall. [facility] Medical History Epidermal cyst of neck Insomnia Bony prominence Left shoulder pain Skin lesion of cheek Drug abuse Lipoma of arm Hep C w/o coma, chronic Anxiety Hypertension Asthma Surgical History History of removal of cyst (~04/30/24) History of appendectomy History of hernia surgery History of lung surgery History of excision of mass Family History Father History of hypertension Other Family history of breast cancer Social History Alcohol intake: unknown Patient Tobacco Use Status: Refuse Tobacco use screen Substance Use Type: Heroin Review of Systems Const Denies chills and Denies fever(s) Physical Exam Vital Signs: BMI result Body Mass Index 24.4 Const General: comfortable and no acute distress HEENT Other: Excision site well healed, not infected Assessment & Plan Assessment & Plan (1) Epidermal cyst of neck: Code(s): L72.0 - Epidermal cyst Category: Medical Plan: Status post excision. His incision is well healed. His sutures were removed. His path report showed an epidermal inclusion cyst. He can follow up on a p.r.n. basis Coding Level of Care Code Global (48576) Diagnoses Epidermal cyst of neck L72.0
[2024-05-11 09:15] VITALS: BMI 24.4
== END 2024-05-11 09:20 | disposition home or self-care (01) ==
PROVIDERS: Visit Provider Surgery
DX: L72.0 Epidermal cyst (principal)
CPT/HCPCS: 99024

== ENCOUNTER → 2024-05-11 09:02 | Outpatient (BNVA) | payer OTHER, SELFPAY | PROVIDERS: Visit Provider Surgery | DX: Z48.817 Encounter for surgical aftercare following surgery on the skin and subcutaneous tissue (principal); Z98.890 Other specified postprocedural states | CPT/HCPCS: 99212 ==

== ENCOUNTER 2024-07-09 08:02 | Outpatient (REF) | payer OTHER, SELFPAY ==
[2024-07-09 11:28] LABS: MANUAL DIFF FLAG NO
[2024-07-09 11:35] LABS: Basophils Absolute Auto 0.1 X10*3/uL (0.0-0.2); Eosinophils Absolute Auto 0.3 X10*3/uL (0.0-0.4); Eosinophils Percent Auto 3.1 % (0-4); Hematocrit 45.6 % (42.0-52.0); Hemoglobin 15.3 g/dl (14.0-18.0); Imm Gran Abs Auto 0.03 X10*3/uL (0.00-0.03); Imm Gran Pct Auto 0.4 % (0.0-0.4); Lymphocytes Percent Auto 36.4 % (20-40); Mean Corpuscular HGB Conc 33.6 g/dl (31.0-36.0); Mean Corpuscular Hemoglobin 34.1 pg (27.0-33.0); Mean Corpuscular Volume 101.6 fL (80.0-98.0); Mean Platelet Volume 11.9 fL (9.4-12.4); Monocytes Absolute Auto 0.8 X10*3/uL (0.1-1.2); Monocytes Percent Auto 9.3 % (2-11); Neutrophils Absolute Auto 4.2 x10*3/uL (2.0-8.3); Neutrophils Percent Auto 49.8 % (45-73); Platelet Count 261 X10*3/uL (160-400); Red Blood Count 4.49 X10*6/uL (4.60-5.80); Red Cell Distribution Width 13.4 % (11.0-16.0); White Blood Count 8.3 X10*3/uL (4.8-10.8)
[2024-07-09 11:48] LABS: Alanine Aminotransferase 28 U/L (0-40); Albumin Level 4.5 g/dL (3.5-5.0); Alkaline Phosphatase 65 U/L (39-117); Anion Gap 9 (12-20); Aspartate Amino Transferase 29 U/L (5-37); Bilirubin Total 0.6 mg/dL (0.0-1.0); Blood Urea Nitrogen 16 mg/dL (9-16); Calcium 9.5 mg/dL (8.4-10.2); Carbon Dioxide 30 mmol/L (22-29); Chloride 107 mmol/L (96-108); Estimated Glomerular Filt Rate > 60; Glucose Random 99 mg/dL (60-115); Potassium 3.9 mmol/L (3.3-5.1); Sodium 142 mmol/L (135-145); Total Protein 8.1 g/dL (6.5-8.0)
[2024-07-09 12:05] LABS: TSH reflex Free T4 2.63 uIU/mL (0.32-4.0)
[2024-07-09 12:07] LABS: Hepatitis A Antibody IgG REACTIVE (Nonreactive); ~Hepatitis A Antibody IgG 11.92 S/CO (0.00-0.99)
[2024-07-09 12:08] LABS: HBS Num1 14.27 mIU/mL (0-7.99); HBsAGNum1 0.44 S/CO (0.00-0.99); HIV AB/AG Nonreactive (Nonreactive); HIV Num 1 0.06 S/CO (0.00-0.99); Hepatitis B Surface Antigen Negative (Negative); ~HepC Num1 15.99 S/CO (0.00-0.79); ~Hepatitis B Surface Antibody REACTIVE (Nonreactive); ~Hepatitis C Antibody Reactive (Nonreactive)
[2024-07-09 12:24] LABS: Creatinine Urine 90.17 mg/dL; Microalbum/Creatinine Ratio Ur 19.9 ug/mg cr (<30)
[2024-07-10 13:58] LABS: RPR Rapid Plasma Reagin NON-REACTIVE (NON-REACTIVE)
[2024-07-13 14:19] LABS: HCV Log PCR <1.18 NOT DETECTED Log IU/mL (NOT DETECTED); HepC Viral Load <15 NOT DETECTED IU/mL (NOT DETECTED)
== END 2024-07-09 08:03 | disposition home or self-care (01) ==
LOC: HO.HHCL 08:02
PROVIDERS: Visit Provider Internal Medicine Geriatric Medicine
DX: I10 Essential (primary) hypertension (principal); R53.83 Other fatigue; Z72.0 Tobacco use; R53.81 Other malaise; Z86.19 Personal history of other infectious and parasitic diseases; Z11.59 Encounter for screening for other viral diseases; Z72.89 Other problems related to lifestyle
CPT/HCPCS: 36415; 80053; 82043; 82570; 84443; 85025; 86592; 86706; 86708; 86803; 87340; 87389; 87522

== ENCOUNTER → 2024-07-21 08:49 | Outpatient (BNV) | payer OTHER, SELFPAY | PROVIDERS: PCP Internal Medicine Geriatric Medicine; Visit Provider Internal Medicine | DX: I35.8 Other nonrheumatic aortic valve disorders (principal); I36.1 Nonrheumatic tricuspid (valve) insufficiency | CPT/HCPCS: 93306 ==

== ENCOUNTER 2024-11-16 09:10 | Outpatient (REF) | payer OTHER, SELFPAY ==
--- OUTSIDE RECORDS SUMMARY | 2024-11-16 09:46 | XMS_ITS | Encounter Summary ---
Author Organization [employer] Address [address] [place] [address] Care Team Providers Care Fine Unhairer Name Role Phone Marlen Licea Primary Care Provider [phone] Name, Siddharth BANEGAS Primary Care Provider Kimberly Arevalo PharmD Unavailable Reason for Referral * Imaging (Routine) - Closed Specialty Diagnoses / Procedures Referred By Contac t Referred To Contact Radiology Diagnoses Age-related osteoporosis without current pathological fracture Procedures BD DEXA Axial Marlen Licea FNP [address] [place] [address] Phone: tel: fax: [address] Phone: tel: fax: Referral ID Status Reason Start Date Expiration Date Visits Re quested Visits Authorized [id number] Closed 03/29/2023 03/28/2024 1 1 Encounter Details Date Type Department Care Team (Late st Contact Info) Description 03/29/2023 Orders Only [facility] [address] [place] [address] Marlen Licea FNP [address] [place] [address] Age-related osteoporosis without current pathological fracture (Primary Dx) Social History Tobacco Use Types Packs/Day Years Used Date Smoking Tobacco: Every Day Cigarettes Smokeless Tobacco: Never Comments:Smokes 3 cigarettes daily Alcohol Use Standard Drinks/Week Comments Yes 3 (1 standard drink = 0.6 oz pur e alcohol) 3 beers daily Depression Answer Date Recorded Patient Health Questionnaire-9 Score 0 03/22/2023 Housing Stability Answer Date Recorded What is your housing situation today? I have mali pelaez 03/24/[address] you li ve. Do you have problems with any of the following? None of the above 03/24/2023 Food Insecurity Answer Date Recorded Within the past 12 months, y ou worried that your food would run out before you got money to buy more: Never True 03/24/2023 Within the past 12 months,th e food you bought just didn't last and you didn't have enough money to get more: Never True 01/2023 Transportation Answer Date Recorded In the past 12 months, has l ack of transportation kept you from medical appts, meetings, work or from getting things needed for daily living? No 03/24/2023 Utilities Answer Date Recorded In the past 12 months, has t he electric, gas, oil or water company threatened to shut off services in your home? No 03/24/2023 Depression Answer Date Recorded Patient Health Questionnaire-2 Score 0 03/22/2023 Sex and Gender Information Value Date Recorded Sex Assigned at Male 04/16/2022 10:19 AM EDT Legal Sex Male 10:19 AM EDT Gender Identity Male 04/16/2022 10:19 AM EDT Sexual Orientation Straight 04/16/2022 10 :19 AM EDT documented as of this encounter Plan of Treatment Upcoming Encounters Date Type Department Care Team (Late st Contact Info) Description 12/15/2024 10:00 AM EDT Medication Management [facility] [address] [place] [address] Kimberly Arevalo, PharmD [address] [place] [address] Scheduled Orders Name Type Priority Associated Diagnoses Orde r Schedule BD DEXA Axial Imaging Routine Age-related osteoporosis without current pathological fracture Expected: 03/29/2023, Expires: 03/29/2024 documented as of this encounter Visit Diagnoses Diagnosis Age-related osteoporosis without current pathological fracture- Primary documented in this encounter Additional Health Concerns Assessment Noted Time PHQ-9 Depression Total Score: 0 03/22/20 23 9:10 AM EDT documented as of this encounter Care Teams Fine Unhairer Relationship Specialty Start Date End Date Marlen Licea FNP [address] [place] [address] PCP - General Family Medicine 08/30/22 02/17/24 Name, MD Siddharth [address] [place] [address] PCP - General Internal Medicine 02/18/24 Kimberly Arevalo PharmD [address] [place] [phone] Pharmacist Internal Medicine 07/27/24 documented as of this encounter
[2024-11-16 12:00] LABS: Anion Gap 13 (12-20); Blood Urea Nitrogen 16 mg/dL (9-16); Calcium 9.3 mg/dL (8.4-10.2); Carbon Dioxide 30 mmol/L (22-29); Chloride 102 mmol/L (96-108); Cholesterol 209 mg/dL (<200); Estimated Glomerular Filt Rate > 60; Glucose Random 99 mg/dL (60-115); HDL Cholesterol 79 mg/dL (>40); LDL Cholesterol Calculated 120 mg/dL (<100); Potassium 3.8 mmol/L (3.3-5.1); Sodium 141 mmol/L (135-145); Triglycerides 54 mg/dL (<150)
[2024-11-16 13:39] LABS: Reflex LDLD? No
== END 2024-11-16 09:11 | disposition home or self-care (01) ==
LOC: HO.HHCL 09:10
PROVIDERS: Visit Provider Internal Medicine Geriatric Medicine
DX: Z00.00 Encounter for general adult medical examination without abnormal findings (principal); I10 Essential (primary) hypertension; Z72.0 Tobacco use
CPT/HCPCS: 36415; 80048; 80061